=== PATIENT | male | born 1950 | race Caucasian/White ===

== ENCOUNTER → 2016-12-08 | Outpatient (CLI) | payer OTHER | END | disposition home or self-care (01) | LOC: PCVCIMAG 13:02 | PROVIDERS: ATTEND Nuclear Medicine Nuclear Cardiology | DX: I65.23 Occlusion and stenosis of bilateral carotid arteries (principal); I73.9 Peripheral vascular disease, unspecified; E11.9 Type 2 diabetes mellitus without complications; E78.5 Hyperlipidemia, unspecified; I10 Essential (primary) hypertension | CPT/HCPCS: 93880; 93923; 93925; 93924 ==

== ENCOUNTER → 2017-02-12 | Outpatient (CLI) | payer OTHER | END | disposition home or self-care (01) | LOC: PCVCIMAG 07:31 | PROVIDERS: ATTEND Internal Medicine | DX: K76.0 Fatty (change of) liver, not elsewhere classified (principal) | CPT/HCPCS: 76700 ==

== ENCOUNTER → 2017-06-23 | Outpatient (CLI) | payer MEDICARE ==
--- NOTE | 2017-06-23 15:38 | PCVCIMAG ---
EXAM: NONINVASIVE ARTERIAL EXAMINATION OF BOTH LOWER EXTREMITIES INCLUDING PRE AND POST EXERCISE PRESSURE MEASUREMENTS AND DOPPLER WAVEFORMS INDICATION: Peripheral Arterial Disease. Leg pain. FINDINGS: Right Brachial: 131 mm Hg. Right Dorsalis Pedis: 141 mm Hg. Right Posterior Tibial: 117 mm Hg. Right LANDON = 1.08. Left Brachial: 123 mm Hg. Left Dorsalis Pedis: 136 mm Hg. Left Posterior Tibial: 133 mm Hg. Left LANDON = 1.04. Post Exercise: Right Brachial 127 mm Hg. Right Dorsalis Pedis: 89 mm Hg. Left Dorsalis Pedis: 140 mm Hg. Right LANDON = 0.70. Left LANDON = 1.10. IMPRESSION: No resting ischemia in the right lower extremity. Mild exercise induced ischemia in the right lower extremity. No resting ischemia in the left lower extremity. No exercise induced ischemia in the left lower extremity. LOC:[id number]
--- NOTE | 2017-06-23 16:03 | PCVCIMAG ---
EXAM: BILATERAL LOWER EXTREMITY ARTERIAL DUPLEX INDICATION: Peripheral Arterial Disease. Leg pain. FINDINGS: Right Leg: Satisfactory arterial waveforms in the common femoral and profunda femoral arteries without significant stenosis. Mild velocity elevation mid superficial femoral artery of 197 cm/s consistent with 40-50% stenosis within the midportion of the prior stent. The popliteal artery is patent. The anterior tibial, peroneal, and posterior tibial arteries are patent. Left Leg: Satisfactory arterial waveforms in the common femoral and profunda femoral arteries without significant stenosis. Mild velocity elevation distal superficial femoral artery of 201 cm/s consistent with 40-50% stenosis within the midportion of the prior stent. The popliteal artery is patent. The anterior tibial, peroneal, and posterior tibial arteries are patent. IMPRESSION: 40-50% restenosis mid right superficial femoral artery within the midportion of a prior stent. 40-50% restenosis mid to distal left superficial femoral artery within the midportion of a prior stent. LOC:[id number]
== END | disposition home or self-care (01) ==
LOC: PCVCIMAG 14:23
PROVIDERS: ATTEND Nuclear Medicine Nuclear Cardiology
DX: I70.203 Unspecified atherosclerosis of native arteries of extremities, bilateral legs (principal); I77.9 Disorder of arteries and arterioles, unspecified; I25.10 Atherosclerotic heart disease of native coronary artery without angina pectoris; I10 Essential (primary) hypertension; E78.00 Pure hypercholesterolemia, unspecified; E11.9 Type 2 diabetes mellitus without complications; Z87.891 Personal history of nicotine dependence; Z95.828 Presence of other vascular implants and grafts; Z79.82 Long term (current) use of aspirin; Z79.84 Long term (current) use of oral hypoglycemic drugs
CPT/HCPCS: 93923; 93925; G0463; 93924

== ENCOUNTER → 2017-08-11 | Outpatient (CLI) | payer MEDICARE | END | disposition home or self-care (01) | LOC: PCVCCLINIC 15:00 | PROVIDERS: ATTEND Internal Medicine | DX: I25.10 Atherosclerotic heart disease of native coronary artery without angina pectoris (principal); I25.5 Ischemic cardiomyopathy; E78.5 Hyperlipidemia, unspecified; I77.9 Disorder of arteries and arterioles, unspecified; I73.9 Peripheral vascular disease, unspecified; E11.9 Type 2 diabetes mellitus without complications; Z79.82 Long term (current) use of aspirin; Z79.84 Long term (current) use of oral hypoglycemic drugs; Z87.891 Personal history of nicotine dependence | CPT/HCPCS: 80061; 93005; G0463 ==

== ENCOUNTER → 2017-12-29 | Outpatient (CLI) | payer MEDICARE | END | disposition home or self-care (01) | LOC: PCVCIMAG 13:13 | DX: I65.23 Occlusion and stenosis of bilateral carotid arteries (principal); I73.9 Peripheral vascular disease, unspecified | CPT/HCPCS: 93880; 93925 ==

== ENCOUNTER → 2018-02-11 | Outpatient (CLI) | payer MEDICARE | END | disposition home or self-care (01) | LOC: PCVCCLINIC 14:50 | DX: I25.10 Atherosclerotic heart disease of native coronary artery without angina pectoris (principal); I25.5 Ischemic cardiomyopathy; E78.5 Hyperlipidemia, unspecified; I65.23 Occlusion and stenosis of bilateral carotid arteries; I73.9 Peripheral vascular disease, unspecified; E11.9 Type 2 diabetes mellitus without complications; Z87.891 Personal history of nicotine dependence; Z79.899 Other long term (current) drug therapy; Z79.82 Long term (current) use of aspirin; Z79.84 Long term (current) use of oral hypoglycemic drugs | CPT/HCPCS: 80061; 93005; G0463 ==

== ENCOUNTER → 2018-08-12 | Outpatient (CLI) | payer MEDICARE | END | disposition home or self-care (01) | LOC: PCVCCLINIC 15:22 | PROVIDERS: ATTEND Internal Medicine | DX: I25.10 Atherosclerotic heart disease of native coronary artery without angina pectoris (principal); R94.31 Abnormal electrocardiogram [ECG] [EKG]; I25.5 Ischemic cardiomyopathy; E78.5 Hyperlipidemia, unspecified; I10 Essential (primary) hypertension; I65.23 Occlusion and stenosis of bilateral carotid arteries; I73.9 Peripheral vascular disease, unspecified; E11.9 Type 2 diabetes mellitus without complications; Z87.891 Personal history of nicotine dependence; Z72.89 Other problems related to lifestyle; Z79.82 Long term (current) use of aspirin; Z79.84 Long term (current) use of oral hypoglycemic drugs | CPT/HCPCS: 80061; 93005; G0463 ==

== ENCOUNTER → 2018-12-10 | Outpatient (CLI) | payer MEDICARE ==
--- NOTE | 2018-12-10 18:16 | PCVCIMAG ---
EXAM: NONINVASIVE ARTERIAL EXAMINATION OF BOTH LOWER EXTREMITIES INCLUDING PRE AND POST EXERCISE PRESSURE MEASUREMENTS AND DOPPLER WAVEFORMS INDICATION: Peripheral Arterial Disease. Leg pain. FINDINGS: Right Brachial: 128 mm Hg. Right Dorsalis Pedis: 104 mm Hg. Right Posterior Tibial: 133 mm Hg. Right LANDON = 0.93. Left Brachial: 143 mm Hg. Left Dorsalis Pedis: 141 mm Hg. Left Posterior Tibial: 132 mm Hg. Left LANDON = 0.99. Post Exercise: Left Brachial 128 mm Hg. Right Posterior Tibial: 130 mm Hg. Left Dorsalis Pedis: 147 mm Hg. Right LANDON = 1.02. Left LANDON = 1.15. IMPRESSION: No resting ischemia in the right lower extremity. No exercise induced ischemia in the right lower extremity. No resting ischemia in the left lower extremity. No exercise induced ischemia in the left lower extremity. LOC:[id number]
--- NOTE | 2018-12-10 18:17 | PCVCIMAG ---
EXAM: BILATERAL LOWER EXTREMITY ARTERIAL DUPLEX INDICATION: Peripheral Arterial Disease. Leg pain. FINDINGS: Right Leg: Satisfactory arterial waveforms throughout the common/profunda/superficial femoral, popliteal, anterior tibial, peroneal, and posterior tibial arteries. No flow limiting stenosis seen. Previous superficial femoral artery stent maintaining good patency. Left Leg: Satisfactory arterial waveforms throughout the common/profunda/superficial femoral, popliteal, anterior tibial, peroneal, and posterior tibial arteries. No flow limiting stenosis seen. Previous superficial femoral artery stent maintaining good patency. IMPRESSION: No flow limiting stenosis in the right lower extremity. No flow limiting stenosis in the left lower extremity. Previous right and left superficial femoral artery stents maintaining satisfactory patency. LOC:[id number]
== END | disposition home or self-care (01) ==
LOC: PCVCIMAG 08:07
PROVIDERS: ATTEND Nuclear Medicine Nuclear Cardiology
DX: I73.9 Peripheral vascular disease, unspecified (principal); I25.10 Atherosclerotic heart disease of native coronary artery without angina pectoris; I10 Essential (primary) hypertension; E11.9 Type 2 diabetes mellitus without complications; E78.00 Pure hypercholesterolemia, unspecified; I77.9 Disorder of arteries and arterioles, unspecified; E78.5 Hyperlipidemia, unspecified; Z87.891 Personal history of nicotine dependence; Z79.82 Long term (current) use of aspirin
CPT/HCPCS: 93924; 93925; G0463

== ENCOUNTER → 2019-02-10 | Outpatient (CLI) | payer MEDICARE | END | disposition home or self-care (01) | LOC: PCVCCLINIC 15:00 | PROVIDERS: ATTEND Internal Medicine | DX: I25.10 Atherosclerotic heart disease of native coronary artery without angina pectoris (principal); I25.5 Ischemic cardiomyopathy; E78.5 Hyperlipidemia, unspecified; I65.23 Occlusion and stenosis of bilateral carotid arteries; E11.51 Type 2 diabetes mellitus with diabetic peripheral angiopathy without gangrene; Z87.891 Personal history of nicotine dependence | CPT/HCPCS: 36415; 80061; 93005; G0463 ==

== ENCOUNTER → 2019-07-01 | Outpatient (CLI) | payer MEDICARE ==
[~2019-07-01] MED LIST: REGADENOSON 0.4 MG/5 ML DISP.SYRIN. IV ONE
--- NOTE | 2019-07-01 16:03 | PCVCIMAG ---
APPROVED REPORT Imaging Protocol: Rest Tc-99m/Stress Tc-99m 1 day Study performed: 07/01/2019 09:21:13 Indication: CAD, CM, New onset exertional dyspnea with Chest Pressure Patient Location: Out-Patient Stress Nurse: Yajaira Campos RN RI Tech:Niki Farrisharesh [facility] Ht: 5 ft 7 in Wt: 195 lbs BSA: 2.00 m2 HR: 62 bpm BP: 144/68 mmHg BMI: 30.5 Rhythm: Sinus Rhythm, 1st Degree AVB, RBBB Medical History Medical History: Hyperlipidemia, PVD, CVD, Diabetic Insulin, Former Smoker Medications: ASA, Atorvastatin, Glucotrol, Metformin, Ramipril Allergies: No known drug allergies Cardiac Risk Factors: Age Previous Cardiac Procedures: PCI - LAD & CIRC Pretest Chest Pain Characteristics: No chest pain Exercise History: Indeterminate Physical Disabilities: SOA Resting Data Rest SPECT myocardial perfusion imaging was performed in supine position 45 minutes following the intravenous injection of 10.3 mCi of Tc-99m Sestamibi. Time of rest injection: 0845 Date: 07/01/2019 Administration Route: IV Administration Site: Right Hand Pharmacologic Stress Pharmacologic stress test was performed by injecting Regadenoson 0.4 mg IV push over 10-15 seconds immediately followed by the intravenous injection of 34.5 mCi of Tc-99m Sestamibi. Time of stress injection: 1000 Date: 07/01/2019 Administration Route: IV Administration Site: Right Hand Gated Stress SPECT was performed 45 minutes after stress injection. The images were gated to evaluate regional wall motion and calculate left ventricular ejection fraction. Stress Test Details Stress Test: Pharmacologic stress was paired with low level exercise. Reason for pharmacologic stress test: physical limitation, exertional dyspnea. HRMax Heart Rate (APMHR): 153 bpm Resting HR: 62 bpmTarget HR (85% APMHR): 130 bpm Max HR Achieved: 98 bpm % of APMHR: 64 Recovery HR: 72 bpm BP Resting BP: 144/68 mmHg Max BP: 124/64 mmHg Recovery BP: 155/71 mmHg ECG Resting ECG: Sinus Rhythm, 1st degree AV block, RBBB Stress ECG: Sinus Rhythm, 1st degree AV block, RBBB ST Change: None Maximum ST Deviation: 0 mm Arrhythmia: PAC's, PVC's, Blocked PACs Recovery ECG: Sinus Rhythm, 1st degree AV block, RBBB Recovery ST Change: Normal Recovery ST Deviation: 0 mm Recovery Arrhythmia: None Clinical Reason for Termination: Completed protocol Stress Symptoms: Abdominal discomfort, Chest tightness, Dyspnea Exercise duration: 4 min 00 sec Exercise capacity: 1.6 METs Reproduced presenting symptoms of MEJIA and chest tightness -resolved with caffeine. Stress ECG Conclusion ECG: Non-ischemic Clinical: Non-ischemic Study Quality Study: Good Study Data Post stress, the left ventricular ejection was 51%.. SSS: 21 SRS: 22 SDS: 1 TID = 1.27. Perfusion No evidence of stress induced ischemia. 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 Wall Motion Moderate left ventricular dilatation. Nuclear Conclusion No evidence of stress induced ischemia. 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 Post stress, the left ventricular ejection was 51%. No prior study available for comparison. Interpreted by: Clifton Joseph MD Electronically Approved: 07/01/2019 15:47:47 <Conclusion> ECG: Non-ischemic Clinical: Non-ischemic
== END | disposition home or self-care (01) ==
LOC: PCVCIMAG 08:40
PROVIDERS: ATTEND Internal Medicine
DX: I25.10 Atherosclerotic heart disease of native coronary artery without angina pectoris (principal); I25.5 Ischemic cardiomyopathy; I10 Essential (primary) hypertension; E78.5 Hyperlipidemia, unspecified; Z87.891 Personal history of nicotine dependence; Z72.89 Other problems related to lifestyle
CPT/HCPCS: 78452; 93017; A9500; J2785

== ENCOUNTER → 2019-07-07 | Outpatient (CLI) | payer MEDICARE ==
--- NOTE | 2019-07-07 16:51 | PCVCIMAG ---
APPROVED REPORT Study performed: 07/07/2019 15:12:37 EXAM: Comprehensive 2D, Doppler, and color-flow Echocardiogram Patient Location: Echo lab Status: routine BSA: 2.00 HR: 62 bpmBP: 118/80 mmHg Rhythm: NSR Other Information Study Quality: Adequate Risk Factors: Cardiac Risk Factors: Hyperlipidemia, DM Indications CAD Cardiomyopathy Stents 2D Dimensions IVSd: 9.00 (7-11mm)LVOT Diam: 19.67 (18-24mm) LVDd: 44.78 mm PWd: 8.82 (7-11mm)Ascending Ao: 33.05 (22-36mm) LVDs: 39.40 (25-40mm) Left Atrium: 43.47 (27-40mm) Aortic Root: 27.15 mm LV Single Plane 4CH: 45.01 % LV Single Plane 2CH: 50.25 % Biplane EF: 47.8 % Volumes Left Atrial Volume (Systole) Single Plane 4CH: 53.31 mLSingle Plane 2CH: 54.09 mL LA ESV Index: 27.00 mL/m2 Aortic Valve LVOT Max P.08 mmHg LVOT Max V: 1.13 m/s Mitral Valve E/A Ratio: 1.9 MV Decel. Time: 141.16 ms MV E Max Tank.: 1.09 m/s MV A Tank.: 0.56 m/s IVRT: 100.35 ms TDI E/Lateral E': 9.08E/Medial E': 7.79 Medial E' Tank.: 0.14 m/s Lateral E' Tank.: 0.12 m/s Pulmonary Valve PV Peak Gr.: 3.59 mmHg Tricuspid Valve TR Peak Tank.: 3.21 m/s TR Peak Gr.: 41.12 mmHg Left Ventricle The left ventricle is normal size. Hypokinesis of the distal septum, anterior wall, and apex There is normal left ventricular wall thickness. Left ventricular systolic function is moderately decreased. LVEF is 40-45%. Moderate diastolic dysfunction is present (pseudonormal filling). Right Ventricle The right ventricle is normal size. The right ventricular systolic function is normal. Atria The left atrium size is normal. The right atrium size is normal. Aortic Valve The aortic valve is normal in structure. No aortic regurgitation is present. There is no aortic valvular stenosis. Mitral Valve The mitral valve is normal in structure. Moderate mitral regurgitation. No evidence of mitral valve stenosis. Tricuspid Valve The tricuspid valve is normal in structure. Trace tricuspid regurgitation. Pulmonary artery pressure is 48mmHg. Pulmonic Valve The pulmonary valve is normal in structure. There is no pulmonic valvular regurgitation. Great Vessels The aortic root is normal in size. IVC is normal in size and collapses >50% with inspiration. Pericardium There is no pericardial effusion. <Conclusion> Left ventricular systolic function is moderately decreased. Hypokinesis of the distal septum, anterior wall, and apex LVEF is 40-45%. Moderate diastolic dysfunction The aortic valve is normal in structure. No aortic regurgitation or stenosis The mitral valve is normal in structure. Moderate mitral regurgitation. Trace tricuspid regurgitation. Pulmonary artery pressure of 48mmHg. There is no pericardial effusion.
== END | disposition home or self-care (01) ==
LOC: PCVCIMAG 14:58
PROVIDERS: ATTEND Internal Medicine
DX: I34.0 Nonrheumatic mitral (valve) insufficiency (principal); I25.10 Atherosclerotic heart disease of native coronary artery without angina pectoris; I25.5 Ischemic cardiomyopathy; R07.9 Chest pain, unspecified; E78.00 Pure hypercholesterolemia, unspecified; E78.5 Hyperlipidemia, unspecified; I10 Essential (primary) hypertension
CPT/HCPCS: 93306

== ENCOUNTER → 2019-08-19 | Outpatient (CLI) | payer MEDICARE ==
--- NOTE | 2019-08-19 11:45 | PCVCIMAG ---
APPROVED REPORT Indications Stenosis Risk Factors Hypertension: Hyperlipidemia Diabetes History of Smoking Doppler Spectral Velocity Analysis PSV / EDVPSV / EDV ECA (R) 89 / 15 cm/sECA (L) 107 / 16 cm/s dICA (R) 63 / 17 cm/sdICA (L) 77 / 22 cm/s Seema (R) 84 / 24 cm/smICA (L) 75 / 22 cm/s pICA (R) 85 / 18 cm/spICA (L) 89 / 24 cm/s Bulb (R) 61 / 14 cm/sBulb (L) 68 / 18 cm/s dCCA (R) 75 / 15 cm/sdCCA (L) 72 / 20 cm/s mCCA (R) 93 / 22 cm/smCCA (L) 93 / 19 cm/s Vert (R) 39 / 11 cm/sVert (L) 45 / 9 cm/s ICA/CCA 1.13ICA/CCA 1.24 Basic Measurements Blood Pressure: Pulses: Right Left RightLeft Brachial(Sitting) 122/[id number]/62mmHgTemporal Real Time B-Mode Imaging Vert. (R)AntegradeVert. (L)Antegrade Findings RIGHT CAROTID: The carotid bulb has moderate plaque. The proximal internal carotid artery shows <40% stenosis. The common carotid artery shows no significant stenosis. The external carotid artery shows no significant stenosis. LEFT CAROTID: The carotid bulb has moderate plaque. The proximal internal carotid artery shows <40% stenosis. The common carotid artery shows no significant stenosis. The external carotid artery shows no significant stenosis. Conclusion <40% stenosis of the right internal carotid artery with moderate plaque. <40% stenosis of the left internal carotid artery with moderate plaque. No change since December 2017 study.
--- NOTE | 2019-08-19 12:32 | PCVCIMAG ---
EXAM: NONINVASIVE ARTERIAL EXAMINATION OF BOTH LOWER EXTREMITIES INCLUDING PRE AND POST EXERCISE PRESSURE MEASUREMENTS AND DOPPLER WAVEFORMS INDICATION: Peripheral Arterial Disease. Leg pain. FINDINGS: Right Brachial: 144 mm Hg. Right Dorsalis Pedis: 134 mm Hg. Right Posterior Tibial: 131 mm Hg. Right LANDON = 0.93. Left Brachial: 143 mm Hg. Left Dorsalis Pedis: 121 mm Hg. Left Posterior Tibial: 118 mm Hg. Left LANDON = 0.84. Post Exercise: Right Brachial 143 mm Hg. Right Dorsalis Pedis: 136 mm Hg. Left Dorsalis Pedis: 149 mm Hg. Right LANDON = 0.95. Left LANDON = 1.04. IMPRESSION: No resting ischemia in the right lower extremity. No exercise induced ischemia in the right lower extremity. Minimal resting ischemia in the left lower extremity. No exercise induced ischemia in the left lower extremity. LOC:[id number]
--- NOTE | 2019-08-19 12:36 | PCVCIMAG ---
EXAM: BILATERAL LOWER EXTREMITY ARTERIAL DUPLEX INDICATION: Peripheral Arterial Disease. Leg pain. FINDINGS: Right Leg: Common femoral artery is patent. 90% stenosis origin profunda femoral artery. Superficial femoral and popliteal artery are patent including previous superficial femoral artery stent. The anterior tibial, peroneal, and posterior tibial arteries are patent. Left Leg: Common femoral artery is patent. Profunda femoral artery is patent. Superficial femoral and popliteal artery are patent including previous superficial femoral artery stent. The anterior tibial, peroneal, and posterior tibial arteries are patent. IMPRESSION: Previous right and left superficial femoral artery stents maintaining satisfactory patency. 90% stenosis origin right profunda femoral artery. Otherwise no flow-limiting arterial stenosis seen in either lower extremity. LOC:[id number]
== END | disposition home or self-care (01) ==
LOC: PCVCIMAG 08:09
PROVIDERS: ATTEND Internal Medicine
DX: I65.23 Occlusion and stenosis of bilateral carotid arteries (principal); I25.10 Atherosclerotic heart disease of native coronary artery without angina pectoris; I44.0 Atrioventricular block, first degree; I45.19 Other right bundle-branch block; I25.5 Ischemic cardiomyopathy; E78.5 Hyperlipidemia, unspecified; I73.9 Peripheral vascular disease, unspecified; E11.9 Type 2 diabetes mellitus without complications; Z87.891 Personal history of nicotine dependence; Z79.82 Long term (current) use of aspirin; Z79.899 Other long term (current) drug therapy; Z95.828 Presence of other vascular implants and grafts
CPT/HCPCS: 36415; 80061; 93005; 93880; 93924; 93925; G0463